=== PATIENT | male | born 1970 | race Caucasian/White ===

== ENCOUNTER 2020-04-03 14:45 | Inpatient (IN) | payer MEDICARE, OTHER ==
[~2020-04-03] VITALS: Ht 172.7 cm; Wt 67.4 kg
[2020-04-03 15:20] VITALS: BP 124/50
[2020-04-03] MEDS ORDERED: TOPROL XL 25MG25 MG PO (15:31)
[2020-04-03] MEDS ORDERED: VANCOCIN125 MG PO (15:31)
[2020-04-03] MEDS ORDERED: EFFEXOR XR75 M2 PO (15:32)
[2020-04-03] MEDS ORDERED: MELATIN 3 MG-11 TAB PO (15:33)
[2020-04-03] MEDS ORDERED: HYDROXYZINE HCL25 M1 PO (16:30)
[2020-04-03] MEDS ORDERED: ZYRTEC10 M3 PO (16:31)
[2020-04-03] MEDS ORDERED: SINGULAIR PO (16:31)
[2020-04-03] MEDS ORDERED: FOLIC ACID1 MG PO (16:32)
[2020-04-03] MEDS ORDERED: NATURE'S BLEND1 TA6 PO (16:33)
[2020-04-03] MEDS ORDERED: DESYREL50 MG PO (16:33)
[2020-04-03] MEDS ORDERED: NICODERM C21 MG/24 H TD (16:34)
[2020-04-03] MEDS ORDERED: OMEPRAZOLE40 MG PO (16:35)
[2020-04-03] MEDS ORDERED: ALDACTONE 25MG25 MG PO (16:36)
[2020-04-03] MEDS ORDERED: [UNRECOGNIZED DRUG - CODE] PO (16:36)
[2020-04-03] MEDS ORDERED: TRAMADOL 50 MG TAB PO (16:37)
[2020-04-03] MEDS ORDERED: NATURE'S BLEND100 M2 PO (16:38)
[2020-04-03] MEDS ORDERED: ROXICODONE 55 MG/TAB PO (16:39)
[2020-04-03] MEDS ORDERED: MAGNESIUM OXID400 M1 PO (16:40)
[2020-04-03] MEDS ORDERED: FUROSEMIDE20 MG PO (16:40)
[2020-04-03 18:23] VITALS: BP 122/73
[2020-04-03 21:14] VITALS: BP 109/74
[2020-04-04] VITALS (8 sets, daily range): BP systolic 72–109; BP diastolic 38–79
[2020-04-04 06:01] LABS: EOS # 0.2 (0.04-0.40); EOS % 2.7 % (0.0-4.0); LYMPH# 1.3 (1.50-4.00); MEAN CELL VOLUME 90 fl (78-100); MEAN CORPUSCULAR HEMOGLOBIN 29 pg (27-31); MEAN CORPUSCULAR HGB CONC 33 g/dL (33-37); MEAN PLATELET VOLUME 10.3 fl (7.4-10.4); MONO # 0.6 (0.20-0.80); NEU # 3.4 (1.40-6.50); PLATELET COUNT 175 K/mm3 (130-400); RED BLOOD COUNT 2.65 M/mm3 (4.20-5.60); RED CELL DISTRIBUTION WIDTH 16.1 % (11.5-14.5); WHITE BLOOD COUNT 5.5 K/mm3 (4.8-10.8)
[2020-04-04 06:03] LABS: HEMATOCRIT 23.8 % (42.0-52.0); HEMOGLOBIN 7.8 g/dL (13.5-18.0)
[2020-04-04 06:12] LABS: ALBUMIN 2.4 g/dL (3.5-5.0)
[2020-04-04 06:13] LABS: POTASSIUM 3.7 mmol/L (3.5-5.1)
[2020-04-04 06:15] LABS: TOTAL PROTEIN 5.7 g/dL (6.4-8.3)
[2020-04-04 06:17] LABS: TOTAL BILIRUBIN 1.9 mg/dL (0.2-1.2)
[2020-04-04 06:21] LABS: MAGNESIUM 1.31 mg/dL (1.60-2.60)
[2020-04-05 02:11] VITALS: BP 115/73
[2020-04-05 05:29] VITALS: BP 103/62
[2020-04-05 10:00] VITALS: BP 103/65
[2020-04-05 13:37] VITALS: BP 105/69
[2020-04-05 18:01] VITALS: BP 98/64
[2020-04-05 22:03] VITALS: BP 106/62
[2020-04-06] VITALS (7 sets, daily range): BP systolic 86–107; BP diastolic 57–64
[2020-04-06 07:59] LABS: EOS # 0.2 (0.04-0.40); EOS % 3.4 % (0.0-4.0); HEMATOCRIT 24.7 % (42.0-52.0); HEMOGLOBIN 8.1 g/dL (13.5-18.0); LYMPH# 1.2 (1.50-4.00); MEAN CELL VOLUME 89 fl (78-100); MEAN CORPUSCULAR HEMOGLOBIN 29 pg (27-31); MEAN CORPUSCULAR HGB CONC 33 g/dL (33-37); MEAN PLATELET VOLUME 10.5 fl (7.4-10.4); MONO # 0.6 (0.20-0.80); NEU # 3.9 (1.40-6.50); PLATELET COUNT 189 K/mm3 (130-400); RED BLOOD COUNT 2.79 M/mm3 (4.20-5.60); RED CELL DISTRIBUTION WIDTH 16.2 % (11.5-14.5)
[2020-04-06 08:09] LABS: POTASSIUM 3.6 mmol/L (3.5-5.1)
[2020-04-06 08:11] LABS: CALCIUM 8.1 mg/dL (8.3-10.5)
[2020-04-07] VITALS (7 sets, daily range): BP systolic 83–113; BP diastolic 52–71
[2020-04-08 03:40] VITALS: BP 92/55
[2020-04-08 05:52] VITALS: BP 84/52
[2020-04-08 10:07] VITALS: BP 102/71
[2020-04-08 14:05] VITALS: BP 101/59
[2020-04-08 18:26] VITALS: BP 106/62
[2020-04-08 21:59] VITALS: BP 102/63
[2020-04-09 02:33] VITALS: BP 86/52
[2020-04-09 06:52] VITALS: BP 107/70
[2020-04-09 09:56] VITALS: BP 97/69
[2020-04-09 13:49] VITALS: BP 128/79
[2020-04-09 17:32] VITALS: BP 95/61
[2020-04-10] VITALS (7 sets, daily range): BP systolic 83–113; BP diastolic 42–69
[2020-04-10 08:23] LABS: BASO # 0.1 (0.02-0.10); EOS # 0.2 (0.04-0.40); EOS % 3.3 % (0.0-4.0); HEMATOCRIT 25.7 % (42.0-52.0); HEMOGLOBIN 8.3 g/dL (13.5-18.0); LYMPH# 1.5 (1.50-4.00); MEAN CELL VOLUME 90 fl (78-100); MEAN CORPUSCULAR HEMOGLOBIN 29 pg (27-31); MEAN CORPUSCULAR HGB CONC 32 g/dL (33-37); MEAN PLATELET VOLUME 9.4 fl (7.4-10.4); MONO # 0.6 (0.20-0.80); NEU # 2.6 (1.40-6.50); PLATELET COUNT 214 K/mm3 (130-400); RED BLOOD COUNT 2.87 M/mm3 (4.20-5.60); RED CELL DISTRIBUTION WIDTH 16.6 % (11.5-14.5); WHITE BLOOD COUNT 4.9 K/mm3 (4.8-10.8)
[2020-04-10 08:33] LABS: POTASSIUM 3.6 mmol/L (3.5-5.1)
[2020-04-10 08:35] LABS: CALCIUM 8.7 mg/dL (8.3-10.5)
[2020-04-11 06:04] VITALS: BP 113/66
[2020-04-11 07:57] LABS: ALBUMIN 2.6 g/dL (3.5-5.0); POTASSIUM 3.9 mmol/L (3.5-5.1)
[2020-04-11 07:58] LABS: CALCIUM 8.6 mg/dL (8.3-10.5)
[2020-04-11 08:00] LABS: TOTAL PROTEIN 6.9 g/dL (6.4-8.3)
[2020-04-11 08:01] LABS: TOTAL BILIRUBIN 1.6 mg/dL (0.2-1.2)
[2020-04-11 08:06] LABS: MAGNESIUM 1.56 mg/dL (1.60-2.60)
[2020-04-11 15:16] VITALS: BP 118/68
[2020-04-11 15:17] VITALS: BP 98/63
[2020-04-11 15:18] VITALS: BP 76/36
[2020-04-11 18:00] VITALS: BP 118/68
[2020-04-12 05:39] VITALS: BP 104/66
[2020-04-12 05:40] VITALS: BP 104/66
[2020-04-12 17:10] VITALS: BP 101/62
[2020-04-12 18:06] VITALS: BP 97/47
[2020-04-13 06:07] VITALS: BP 94/54
[2020-04-13 06:08] VITALS: BP 94/54
[2020-04-13 09:03] LABS: EOS # 0.3 (0.04-0.40); HEMATOCRIT 26.3 % (42.0-52.0); HEMOGLOBIN 8.4 g/dL (13.5-18.0); LYMPH# 1.5 (1.50-4.00); MEAN CELL VOLUME 89 fl (78-100); MEAN CORPUSCULAR HEMOGLOBIN 28 pg (27-31); MEAN CORPUSCULAR HGB CONC 32 g/dL (33-37); MEAN PLATELET VOLUME 9.8 fl (7.4-10.4); MONO # 0.7 (0.20-0.80); NEU # 3.6 (1.40-6.50); PLATELET COUNT 214 K/mm3 (130-400); RED BLOOD COUNT 2.96 M/mm3 (4.20-5.60); RED CELL DISTRIBUTION WIDTH 16.4 % (11.5-14.5); WHITE BLOOD COUNT 6.2 K/mm3 (4.8-10.8)
[2020-04-13 09:07] LABS: POTASSIUM 4.1 mmol/L (3.5-5.1)
[2020-04-13 09:08] LABS: CALCIUM 8.6 mg/dL (8.3-10.5)
[2020-04-13 09:12] LABS: EOS % 5.2 % (0.0-4.0)
[2020-04-13 18:53] VITALS: BP 113/70
[2020-04-14 06:07] VITALS: BP 90/36; BP 93/36
[2020-04-14 18:00] VITALS: BP 109/74
[2020-04-15 05:41] VITALS: BP 119/75
[2020-04-15 18:00] VITALS: BP 106/65
[2020-04-15 21:38] VITALS: BP 108/65
[2020-04-16 06:04] VITALS: BP 123/74
[2020-04-16 17:04] VITALS: BP 102/64
[2020-04-17 05:50] VITALS: BP 105/62
[2020-04-17 14:55] VITALS: BP 112/66
[2020-04-17 14:58] VITALS: BP 112/66
[2020-04-17 19:34] VITALS: BP 122/77
[2020-04-18 05:39] VITALS: BP 98/53
[2020-04-18 08:57] VITALS: BP 100/58
[2020-04-18 13:00] VITALS: BP 118/78
[2020-04-18 14:27] LABS: EOS # 0.1 (0.04-0.40); EOS % 2.5 % (0.0-4.0); HEMATOCRIT 24.6 % (42.0-52.0); MEAN CELL VOLUME 86 fl (78-100); MEAN CORPUSCULAR HEMOGLOBIN 27 pg (27-31); MEAN CORPUSCULAR HGB CONC 32 g/dL (33-37); MONO # 0.4 (0.20-0.80); NEU # 2.5 (1.40-6.50); PLATELET COUNT 180 K/mm3 (130-400); RED BLOOD COUNT 2.85 M/mm3 (4.20-5.60); RED CELL DISTRIBUTION WIDTH 16.5 % (11.5-14.5); WHITE BLOOD COUNT 3.6 K/mm3 (4.8-10.8)
[2020-04-18 14:30] LABS: HEMOGLOBIN 7.8 g/dL (13.5-18.0); LYMPH# 0.7 (1.50-4.00)
[2020-04-18 14:37] LABS: ALBUMIN 2.5 g/dL (3.5-5.0); POTASSIUM 4.3 mmol/L (3.5-5.1)
[2020-04-18 14:38] LABS: CALCIUM 8.5 mg/dL (8.3-10.5)
[2020-04-18 14:41] LABS: TOTAL BILIRUBIN 1.2 mg/dL (0.2-1.2)
[2020-04-18 16:32] VITALS: BP 110/65
[2020-04-19 05:43] VITALS: BP 103/64; BP 103/84
[2020-04-19 17:31] VITALS: BP 118/75
[2020-04-20] VITALS (15 sets, daily range): BP systolic 98–121; BP diastolic 54–85
[2020-04-21 01:03] LABS: ADRENOCORTICOTROPIC HORMONE 25 pg/mL (5-27)
[2020-04-21 06:10] VITALS: BP 116/75
[2020-04-21 06:14] VITALS: BP 116/75
[2020-04-21 18:08] VITALS: BP 114/76
[2020-04-22 05:58] VITALS: BP 110/70
[2020-04-22 06:01] VITALS: BP 110/70
[2020-04-22 18:08] VITALS: BP 115/67
[2020-04-23 06:35] VITALS: BP 104/70
[2020-04-23 06:38] VITALS: BP 104/70
[2020-04-23 17:23] VITALS: BP 117/75
[2020-04-24 06:46] VITALS: BP 112/71
[2020-04-24 17:17] VITALS: BP 132/83
[2020-04-25 06:20] VITALS: BP 132/82
[2020-04-25 06:30] LABS: EOS # 0.3 (0.04-0.40); HEMATOCRIT 30.2 % (42.0-52.0); HEMOGLOBIN 9.8 g/dL (13.5-18.0); LYMPH# 1.2 (1.50-4.00); MEAN CELL VOLUME 86 fl (78-100); MEAN CORPUSCULAR HEMOGLOBIN 28 pg (27-31); MEAN CORPUSCULAR HGB CONC 33 g/dL (33-37); MEAN PLATELET VOLUME 9.7 fl (7.4-10.4); MONO # 0.6 (0.20-0.80); NEU # 2.8 (1.40-6.50); PLATELET COUNT 151 K/mm3 (130-400); RED BLOOD COUNT 3.53 M/mm3 (4.20-5.60); RED CELL DISTRIBUTION WIDTH 16.7 % (11.5-14.5); WHITE BLOOD COUNT 4.9 K/mm3 (4.8-10.8)
[2020-04-25 06:35] LABS: EOS % 5.5 % (0.0-4.0)
[2020-04-25 06:39] LABS: ALBUMIN 2.6 g/dL (3.5-5.0); POTASSIUM 3.6 mmol/L (3.5-5.1)
[2020-04-25 06:40] LABS: CALCIUM 8.5 mg/dL (8.3-10.5)
[2020-04-25 06:42] LABS: TOTAL PROTEIN 6.8 g/dL (6.4-8.3)
[2020-04-25 06:43] LABS: TOTAL BILIRUBIN 1.2 mg/dL (0.2-1.2)
[2020-04-25 06:48] LABS: MAGNESIUM 1.81 mg/dL (1.60-2.60)
[2020-04-25 17:50] VITALS: BP 113/70
[2020-04-26 05:49] VITALS: BP 112/72
[2020-04-26] MEDS ORDERED: NICOTINE14 MG/24 H TD (08:30)
[2020-04-26] MEDS ORDERED: Remove Patch TD (08:30)
[2020-04-26] MEDS ORDERED: CARBIDOPA/LEVOD1 TAB PO (08:30)
[2020-04-26] MEDS ORDERED: FLORINEF 00.1 MG/TAB PO (08:30)
[2020-04-26] MEDS ORDERED: VITAMIN D325 MC1 PO (08:30)
[2020-04-26] MEDS ORDERED: VANCOCIN125 MG PO (09:58)
[2020-04-26] MEDS ORDERED: ULTRAM50 M1 PO (09:59)
[2020-04-26] MEDS ORDERED: OXYCODONE HYDROC5 M1 PO (10:00)
== END 2020-04-26 10:52 | disposition home health service (06) | DRG 947 ==
LOC: MED/SURG 14:45
PROVIDERS: Family Medicine; Internal Medicine; Nurse Practitioner Family; Physician Assistant; ADMIT Nurse Practitioner Family
DX: R53.81 Other malaise (principal); K85.90 Acute pancreatitis without necrosis or infection, unspecified; K76.6 Portal hypertension; D61.818 Other pancytopenia; G93.40 Encephalopathy, unspecified; A04.71 Enterocolitis due to Clostridium difficile, recurrent; E44.0 Moderate protein-calorie malnutrition; I10 Essential (primary) hypertension; E78.5 Hyperlipidemia, unspecified; D64.9 Anemia, unspecified; H81.09 Meniere's disease, unspecified ear; F32.9 Major depressive disorder, single episode, unspecified; K74.60 Unspecified cirrhosis of liver; I95.1 Orthostatic hypotension; E55.9 Vitamin D deficiency, unspecified; K21.9 Gastro-esophageal reflux disease without esophagitis; F10.10 Alcohol abuse, uncomplicated; R25.1 Tremor, unspecified; Z68.22 Body mass index [BMI] 22.0-22.9, adult; K76.0 Fatty (change of) liver, not elsewhere classified; F41.9 Anxiety disorder, unspecified; F17.210 Nicotine dependence, cigarettes, uncomplicated; E87.6 Hypokalemia; E83.42 Hypomagnesemia; Z79.891 Long term (current) use of opiate analgesic
CPT/HCPCS: A9270-GY; J0834; J7030; J7040; P9016; Q0177

== ENCOUNTER 2020-05-21 09:28 | Emergency (ER) | payer MEDICARE, OTHER ==
[~2020-05-21] VITALS: Ht 172.7 cm; Wt 76.4 kg
[~2020-05-21 09:28] MED LIST: ALDACTONE 25MG25 MG PO; CARBIDOPA/LEVOD1 TAB PO; DESYREL50 MG PO; EFFEXOR XR75 M2 PO; FLORINEF 00.1 MG/TAB PO; FOLIC ACID1 MG PO; FUROSEMIDE20 MG PO; HYDROXYZINE HCL25 M1 PO; MAGNESIUM OXID400 M1 PO; MELATIN 3 MG-11 TAB PO; NATURE'S BLEND1 TA6 PO; NATURE'S BLEND100 M2 PO; NICODERM C21 MG/24 H TD; NICOTINE14 MG/24 H TD; OMEPRAZOLE40 MG PO; OXYCODONE HYDROC5 M1 PO; ROXICODONE 55 MG/TAB PO; Remove Patch TD; SINGULAIR PO; TOPROL XL 25MG25 MG PO; TRAMADOL 50 MG TAB PO; ULTRAM50 M1 PO; VANCOCIN125 MG PO; VITAMIN D325 MC1 PO; ZYRTEC10 M3 PO; [UNRECOGNIZED DRUG - CODE] PO
[2020-05-21 10:28] LABS: EOS % 1.1 % (0.0-4.0); HEMOGLOBIN 10.8 g/dL (13.5-18.0); LYMPH# 0.9 (1.50-4.00); MEAN CELL VOLUME 85 fl (78-100); MEAN CORPUSCULAR HEMOGLOBIN 28 pg (27-31); MEAN CORPUSCULAR HGB CONC 33 g/dL (33-37); MEAN PLATELET VOLUME 9.4 fl (7.4-10.4); MONO # 0.4 (0.20-0.80); NEU # 2.3 (1.40-6.50); PLATELET COUNT 71 K/mm3 (130-400); RED CELL DISTRIBUTION WIDTH 22.1 % (11.5-14.5); WHITE BLOOD COUNT 3.7 K/mm3 (4.8-10.8)
[2020-05-21 10:47] LABS: ALBUMIN 2.8 g/dL (3.5-5.0); POTASSIUM 3.1 mmol/L (3.5-5.1); SODIUM 139 mmol/L (136-145)
[2020-05-21 10:48] LABS: CALCIUM 8.1 mg/dL (8.3-10.5)
[2020-05-21 10:49] LABS: GLUCOSE 123 mg/dL (75-110)
[2020-05-21 10:50] LABS: CARBON DIOXIDE 23 mmol/L (22-29); TOTAL PROTEIN 6.3 g/dL (6.4-8.3)
[2020-05-21 10:51] LABS: TOTAL BILIRUBIN 1.3 mg/dL (0.2-1.2)
[2020-05-21 10:52] LABS: ALCOHOL IN-HOUSE 185 mg/dL (<10)
[2020-05-21 10:55] LABS: AST-SGOT 44 U/L (5-34)
[2020-05-21 10:56] LABS: LIPASE 45 U/L (8-78)
[2020-05-21 10:58] LABS: ALT/SGPT < 6 U/L (0-55)
[2020-05-21 11:40] LABS: ERYTHROCYTE SEDIMENTATION RATE 25 mm/hr (0-20)
[2020-05-21 13:06] LABS: PROTHROMBIN TIME 12.2 SECONDS (9.0-12.0)
[2020-05-21 14:49] VITALS: BP 154/107
== END 2020-05-21 14:34 | disposition home or self-care (01) ==
LOC: ED 09:28
PROVIDERS: Physician Assistant
DX: K70.31 Alcoholic cirrhosis of liver with ascites (principal); Z20.828 Contact with and (suspected) exposure to other viral communicable diseases
CPT/HCPCS: J1885; J7030